=== PATIENT | male | born 1950 | race Caucasian/White ===

== ENCOUNTER 2017-03-20 09:01 | Day surgery (SDC) | payer MEDICARE ==
[2017-03-20] MEDS ORDERED: LACTATED RINGERS 1,000 ML ONE (09:29)
[2017-03-20] MEDS ORDERED: IV START KIT ONE (09:30)
[2017-03-20] MEDS ORDERED: CEFAZOLIN SODIUM 2 GRAM PREMIX 100 ML IV ONE (09:59)
[2017-03-20] MEDS ORDERED: CEFAZOLIN SODIUM 2 GRAM PREMIX 100 ML IV PRN (10:00)
[2017-03-20] MEDS ORDERED: BUPIVACAINE 0.75% SPINAL AMPUL 2 ML ONE (11:04)
[2017-03-20] MEDS ORDERED: SPINAL PROCEDURAL TRAY 1 EACH ONE (11:05)
[2017-03-20] MEDS ORDERED: MIDAZOLAM HCL 5 MG/5 ML VIAL ONE (11:06)
[2017-03-20] MEDS ORDERED: FENTANYL 100 MCG/2 ML VIAL ONE (11:06)
[2017-03-20] MEDS ORDERED: OPIUM/BELLADONNA ALKALOIDS 1 EACH SUP PR ONE (11:10)
[2017-03-20] MEDS ORDERED: METOCLOPRAMIDE HCL 5 MG/ML 2ML VIAL ONE (11:28)
[2017-03-20] MEDS ORDERED: ONDANSETRON 4 MG/2ML 2 ML VIAL IV PRN (13:12)
[2017-03-20] MEDS ORDERED: MORPHINE SULFATE 2 MG/ML SYRINGE IV PRN (13:12)
[2017-03-20] MEDS ORDERED: BISACODYL 10 MG SUP PR PRN (13:12)
[2017-03-20] MEDS ORDERED: MENTHOL/CETYLPYRD 1 EACH LOZENGE PO PRN (13:12)
[2017-03-20] MEDS ORDERED: OPIUM/BELLADONNA ALKALOIDS 1 EACH SUP PR PRN (13:12)
[2017-03-20] MEDS ORDERED: BLISTEX LIPSTICK 1 EACH TP PRN (13:12)
[2017-03-20] MEDS ORDERED: MORPHINE SULFATE 10 MG/ML SYRINGE IV PRN (13:29)
[2017-03-20] MEDS ORDERED: MORPHINE SULFATE 4 MG/ML SYRINGE IV PRN (13:29)
--- NOTE | 2017-03-20 13:52 | OP ---
ISAAK GIBBONS [id number] DATE OF OPERATION: March 20, 2017 SURGEON: Malik Guerra M.D. SUPERVISOR BLASTING: None. ANESTHESIA: Spinal. PREOPERATIVE DIAGNOSIS: Bladder outlet obstruction due to prostate enlargement. POSTOPERATIVE DIAGNOSIS: Bladder outlet obstruction due to prostate enlargement. PROCEDURE: TRANSURETHRAL RESECTION OF THE PROSTATE. SPECIMENS: Chips of prostatic tissue. INDICATIONS: The patient is a 67-year-old man with a greater than two year history of increasing lower urinary tract symptoms to the point of episodic painful voiding and some pain after voiding. Urodynamic studies demonstrate a bladder outlet obstruction with mild to moderate elevation with a post void residual. Cystoscopy confirmed a 4 cm or more anatomic obstruction with bladder wall trabeculation and asymmetric left-sided greater than right-sided tissue compression centrally. He at this point has elected surgical intervention. FINDINGS: The anterior portion of the urethra looked normal. The membranous urethra appeared to be intact. The prostatic fossa was 4 cm length at least in length and obstructed by the lateral lobe, posterior lobe and an abundant amount of anterior tissue hanging down over the bladder neck. The bladder neck is elevated. Ureteral orifices are normally disposed. Bladder wall is mildly to moderately trabeculated without other focal lesions. PROCEDURE: The patient was identified and brought to the operating room where spinal anesthetic was applied. Then he was placed in a dorsal lithotomy position. The genital region was prepared and draped sterilely. The distal urethra was calibrated with [place] sounds up to 32 F[place]ian, and then a 27 Fijian resectoscope sheath was introduced with the visual obturator. Findings are as reported above. Using saline as an irrigant and a bipolar loop cautery system, we began resection anteriorly, working down the lateral lobes and then from the bladder neck region out to the verumontanum. We preserved a strip of tissue from the bladder neck posteriorly to the verumontanum itself. Bleeding was controlled with cautery. Chips of tissue were removed with the assistance of an Guide evacuator. Once the fossa had been adequately resected, bleeding adequately controlled, and the chips were removed, the resectoscope was withdrawn, and a 24 Fijian catheter was passed and left to gravity drainage with 40 mL of water in its balloon. Three-way saline irrigation was instituted. The estimated blood loss was less than 75 mL. Resection time was approximately 45 minutes. There were no early complications. The patient tolerated the procedure well and was taken in stable condition to the post-anesthesia room. cc: Malik Guerra M.D. Aarti Olivares M.D.
[2017-03-20 14:02] VITALS: BMI 36.2
[2017-03-20] MEDS: ATORVASTATIN CALCIUM 40 MG TABLET PO SCH (14:20)
[2017-03-20] MEDS: PHENAZOPYRIDINE HCL 200 MG TABLET PO SCH ×2 (14:20→20:49)
[2017-03-20] MEDS: LISINOPRIL 10 MG TABLET PO SCH (14:20)
[2017-03-20] MEDS: HYDROCODONE/ACETAMINOPHEN 5/325MG TABLET PO PRN (19:11)
[2017-03-20] MEDS: DOCUSATE SODIUM 250 MG CAPSULE PO SCH (20:49)
[2017-03-20] MEDS ORDERED: POLYETHYLENE GLYCOL 3350 17 G POWD.SUSP PO SCH (21:00)
[2017-03-21] MEDS: HYDROCODONE/ACETAMINOPHEN 5/325MG TABLET PO PRN (05:35)
[2017-03-21 07:15] VITALS: BP 127/64
[2017-03-21] MEDS ORDERED: PNEUMOCOCCAL 23-VAL P-SAC VAC 0.5 ML VIAL IM V ONE (09:00)
[2017-03-21] MEDS: PHENAZOPYRIDINE HCL 200 MG TABLET PO SCH (09:09)
[2017-03-21] MEDS: DOCUSATE SODIUM 250 MG CAPSULE PO SCH (09:09)
[2017-03-21] MEDS: ATORVASTATIN CALCIUM 40 MG TABLET PO SCH (09:09)
[2017-03-21] MEDS: LISINOPRIL 10 MG TABLET PO SCH (09:09)
--- NOTE | 2017-03-23 13:02 | SURGPATH ---
[facility] [address] [place] [id number] Patient Name: ISAAK GIBBONS MR#: [id number] : 1950 Gender: M Specimen #: [id number] Collected: 03/20/2017 Received: 03/22/2017 Reported: 03/23/2017 Submitting Phys: AYDEN PIMENTEL Copy To Phys: [facility] Clinical History / Pre-Operative Diagnosis: BLADDER OUTLET OBSTRUCTION SECONDARY TO ENLARGED PROSTATE Specimen Source / Surgical Procedure Performed: PROSTATE CHIPS Interpretation: TRANSURETHRAL RESECTION, PROSTATE CHIPS: - FIBROGLANDULAR HYPERPLASIA WITH FOCI OF ACUTE AND CHRONIC INFLAMMATION. - NO MALIGNANCY IDENTIFIED. Electronically Signed Out Ernestina Hamilton M.D. Gross Description: The specimen is received in a formalin filled container labeled with the patient's name and "prostate chips". An aggregate of rubbery caban tissue is 6.0 x 4.5 x 2 cm and 13 g. Totally embedded in cassettes Eduardo Wheeler Microscopic Description: Sections of the prostate chips show nodular areas of glandular and stromal hyperplasia. Foci of acute and chronic inflammation are also noted. No malignancy is identified. 1: [id number] N40.1
== END 2017-03-21 11:23 | disposition home or self-care (01) ==
LOC: SDC 09:01 → MS 13:23 → SDC 03-21 11:23
PROVIDERS: ATTEND Urology
PROC: 0VT08ZZ Resection of Prostate, Via Natural or Artificial Opening Endoscopic (ICD-10-PCS; principal; 2017-03-20)
DX: N40.1 Benign prostatic hyperplasia with lower urinary tract symptoms (principal); R39.15 Urgency of urination; N13.8 Other obstructive and reflux uropathy; N32.89 Other specified disorders of bladder; I25.10 Atherosclerotic heart disease of native coronary artery without angina pectoris; E66.9 Obesity, unspecified; I10 Essential (primary) hypertension; Z87.891 Personal history of nicotine dependence; Z86.39 Personal history of other endocrine, nutritional and metabolic disease; Z23 Encounter for immunization
CPT/HCPCS: 90732; 52601; A9270 ×13; J3010; J2270; J2765; J2250; J7120; J0690